=== PATIENT | female | born 1975 | race Two or more races ===

== ENCOUNTER → 2018-02-10 | Outpatient (CLI) | payer OTHER ==
--- NOTE | 2018-02-10 12:48 | RAD ---
DATE: 02/10/2018 EXAM: DIGITAL SCREEN BILAT W/CAD HISTORY: Routine screening COMPARISON: None available This study was interpreted with the benefit of Computerized Aided Detection (CAD). Breast Density: HETERO The breast parenchyma is heterogenously dense, which could reduce sensitivity of mammography. Breast parenchyma level C. FINDINGS: No suspicious breast densities are seen. Several benign type scattered microcalcifications are present in the left breast. No malignant type clustered microcalcifications are evident. IMPRESSION: There is no mammographic evidence of malignancy in either breast. BI-RADS CATEGORY: 2 BENIGN FINDING(S) RECOMMENDED FOLLOW-UP: 12M 12 MONTH FOLLOW-UP PQRS compliance statement: Patient information was entered into a reminder system with a target due date for the next mammogram. Mammography is a sensitive method for finding small breast cancers, but it does not detect them all and is not a substitute for careful clinical examination. A negative mammogram does not negate a clinically suspicious finding and should not result in delay in biopsying a clinically suspicious abnormality. "Our facility is accredited by the [employer] Mammography [employer]."
== END | disposition home or self-care (01) ==
LOC: MAMMO 08:54
PROVIDERS: ATTEND Nurse Practitioner Gerontology
DX: Z12.31 Encounter for screening mammogram for malignant neoplasm of breast (principal)
CPT/HCPCS: 77067

== ENCOUNTER → 2020-08-15 | Outpatient (CLI) | payer OTHER ==
--- NOTE | 2020-08-15 08:30 | RAD ---
EXAM: Bilateral screening mammogram. HISTORY: 44-year-old female presents for screening mammography. TECHNIQUE: Full-field digital craniocaudal and mediolateral oblique views of both breasts are obtaine d for evaluation. Computer aided detection was applied. COMPARISON: 02/10/2018 BREAST PARENCHYMAL DENSITY: Level D - Extremely dense. FINDINGS: There is a cluster of microcalcifications with indistinct morphology within the 3:00 positi on of the left breast at mid depth. There are additional benign scattered calcifications within the l eft breast. There is no new suspicious mass or architectural distortion. IMPRESSION: BI-RADS Category 0: Incomplete. Additional imaging needed. RECOMMENDATION: Further evaluation with spot magnification views of clustered microcalcifications at the 3:00 position of the left breast at mid depth is recommended to better assess calcification morph ology. If your mammogram demonstrates that you have dense breast tissue, which could hide abnormalities, and if you have other risk factors for breast cancer that have been identified, you might benefit from s upplemental screening tests that may be suggested by your ordering physician. Dense breast tissue, i n and of itself, is a relatively common condition. This information is not provided to cause undue c oncern, but rather to raise your awareness and to promote discussion with your physician regarding th e presence of other risk factors, in addition to dense breast tissue. A report of your mammography re sults will be sent to you and your physician. You should contact your physician if you have any ques tions or concerns regarding this report. Mammography is a sensitive method for finding small breast cancers, but it does not detect them all a nd is not a substitute for careful clinical examination. A negative mammogram does not negate a clin ically suspicious finding and should not result in delay in biopsying a clinically suspicious abnorma lity. PQRS compliance statement - Patient information was entered into a reminder system with a target due date for the next mammogram. "Our facility is accredited by the [employer] Mammography [employer]." Electronically signed by: Shruti Jarrett MD (08/15/2020 8:28 AM) [id number]
== END ==
LOC: MAMMO 08:20
PROVIDERS: ATTEND Nurse Practitioner Gerontology
DX: Z12.31 Encounter for screening mammogram for malignant neoplasm of breast (principal)
CPT/HCPCS: 77067

== ENCOUNTER → 2020-09-11 | Outpatient (CLI) | payer OTHER ==
[~2020-09-11] MED LIST: LIDOCAINE 2%/EPI 1:100,000 20 ML VIAL. INJ ONE; LIDOCAINE WITH 8.4% SOD BICARB 3 ML DISP.SYRIN. INJ ONE; LIDOCAINE WITH 8.4% SOD BICARB 3 ML DISP.SYRIN. ONE
--- NOTE | 2020-09-11 14:48 | RAD ---
EXAM: Stereotactic left breast biopsy; specimen radiograph; post-biopsy clip placement; unilateral po st-biopsy mammogram. HISTORY: 44-year-old female presents for stereotactic biopsy of microcystic calcifications within the 12:30 position of the left breast demonstrated on a study performed 08/21/2020. TECHNIQUE AND FINDINGS: The procedure and its risks and benefits were discussed with the patient. Ris ks discussed included, but were not limited to, pain, infection, bleeding and need for repeat biopsy. The patient provided verbal and written consent. A timeout was performed. The patient was placed in a prone position of the stereotacic table and the left breast was placed in craniocaudal compression. Images were obtained and the calcifications of concern were localized usin g stereotaxis. The skin overlying this region was then sterilely prepped and infiltrated with a few c c 1% lidocaine for local anesthesia. Deeper soft tissue anesthesia was administered with epinephrine in 1% lidocaine. A small skin incision was made and the biopsy device was advanced and appropriate po sitioning was confirmed with additional images. Subsequently, multiple core biopsy samples were obtained with vacuum assistance. A plain radiograph o f the specimen was obtained, demonstrating inclusion of the ossifications of interest. Then, a post-b iospy clip was advanced to the site of biopsy using the same guidance technique. A sterile bandage w as placed, and the patient was transferred to the mammography suite for craniocaudal and mediolateral oblique views. The post-biopsy mammogram was interpreted as a separate workstation and demonstrates immediate post-b iospy changes and a biopsy clip in expected position. The patient tolerated the procedure without dif ficulty and was discharged to home in stable condition with post-biospy care instructions. IMPRESSION: Successful stereotactic biopsy of clustered microcalcifications within the 12:30 position of the left breast and post-biopsy clip placement. An addendum to this report will be submitted when pathology results are available. Electronically signed by: Shruti Jarrett MD (09/11/2020 2:45 PM) [id number]
== END | disposition home or self-care (01) ==
LOC: MAMMO 13:02
PROVIDERS: ATTEND Nurse Practitioner Gerontology
DX: R92.1 Mammographic calcification found on diagnostic imaging of breast (principal); R92.8 Other abnormal and inconclusive findings on diagnostic imaging of breast; Z79.899 Other long term (current) drug therapy
CPT/HCPCS: 19081; 77065; J3490